=== PATIENT | female | born 1955 | race Caucasian/White ===

== ENCOUNTER 2021-04-23 11:16 | Emergency (ER) | payer MEDICAID, SELFPAY ==
[~2021-04-23] VITALS: Ht 165.1 cm; Wt 88.9 kg
[2021-04-23 11:18] VITALS: BP_SYST 146
[2021-04-23] MEDS ORDERED: ALTEPLASE 100 MG VIAL IVP ONE (11:45)
[2021-04-23] MEDS ORDERED: ALTEPLASE 100 MG VIAL IV ONE (11:45)
[2021-04-23 12:00] LABS: BASOPHILS % (AUTO) 0.5 % (0.0-2.0); EOSINOPHILS # (AUTO) 0.2 K/uL (0.0-0.4); EOSINOPHILS % (AUTO) 2.8 % (0.0-4.0); HEMATOCRIT 40.7 % (36-48); HEMOGLOBIN 13.9 g/dL (12.0-16.0); LYMPHOCYTES # (AUTO) 2.2 K/uL (1.0-5.5); LYMPHOCYTES % (AUTO) 27.3 % (20.5-51.5); MEAN CORPUSCULAR HEMOGLOBIN 33 pg (27-31); MEAN CORPUSCULAR HGB CONC 34 % (32-36); MEAN CORPUSCULAR VOLUME 98 fL (79.0-98.0); MONOCYTES # (AUTO) 0.7 K/uL (0.0-1.0); MONOCYTES % (AUTO) 8.8 % (1.7-9.3); NEUTROPHILS # (AUTO) 4.9 K/uL (1.8-7.7); NEUTROPHILS % (AUTO) 60.6 % (40.0-70.0); PLATELET COUNT (AUTO) 219 K/uL (130-430); RED BLOOD CELL COUNT(AUTO) 4.17 MIL/uL (4.2-6.2); RED CELL DISTRIBUTION WIDTH 12.5 % (9.0-15.0)
[2021-04-23 12:01] LABS: CALCIUM 8.4 mg/dL (8.4-11.0); CREATININE 0.73 mg/dL (0.55-1.30); POTASSIUM 3.5 mmol/L (3.5-5.1)
[2021-04-23 12:05] LABS: PROTHROMBIN TIME 10.4 SECS (9.5-12.5)
[2021-04-23 12:12] LABS: ALBUMIN 3.7 g/dL (3.4-4.8); TOTAL BILIRUBIN 0.4 mg/dL (0.0-1.0)
[2021-04-23 13:15] VITALS: BP_SYST 135
== END 2021-04-23 13:16 | disposition home or self-care (01) ==
LOC: SED 11:16
DX: I63.9 Cerebral infarction, unspecified (principal); Z20.822 Contact with and (suspected) exposure to COVID-19
CPT/HCPCS: 36415; 37195; 70450; 71045; 76376; 80053; 83605; 84484; 85025; 85610; 85730; 86886; 86900; 86901; 87426; 93005; 99285; J2997